=== PATIENT | female | born 1955 | race Two or more races ===

== ENCOUNTER 2024-02-08 09:05 | Emergency (ER) | payer MEDICARE, OTHER ==
[~2024-02-08] VITALS: Ht 157.5 cm; Wt 81.8 kg
[2024-02-08 09:10] VITALS: TEMP 98
[2024-02-08] MEDS: OxyCODONE HCL/ACETAMINOPHEN 5-325 MG TABLET PO ONE (09:47)
[2024-02-08] MEDS: LORazepam 1 MG TABLET PO ONE (09:47)
[2024-02-08 10:32] VITALS: BP 144/82; PULSE 88; RESP 16
== END 2024-02-08 11:29 | disposition home or self-care (01) ==
LOC: EMS 09:05
DX: S43.005A Unspecified dislocation of left shoulder joint, initial encounter (principal); X58.XXXA Exposure to other specified factors, initial encounter; Y93.89 Activity, other specified; Y92.89 Other specified places as the place of occurrence of the external cause; Y99.8 Other external cause status
CPT/HCPCS: 23650; 99284

== ENCOUNTER 2024-05-07 01:33 | Emergency (ER) | payer MEDICARE, OTHER ==
[~2024-05-07] VITALS: Ht 154.9 cm; Wt 58.2 kg
[2024-05-07 01:55] VITALS: TEMP 98
[2024-05-07] MEDS: HYDROCODONE/ACETAMINOPHEN 5-325 MG TABLET PO ONE (02:15)
[2024-05-07] MEDS: BUPIVACAINE HCL/PF 0.5% 10 ML VIAL IARTIC ONE (02:33)
[2024-05-07] MEDS ORDERED: HYDROmorphone HCL 2 MG/ML SYRINGE IM ONE (02:45)
[2024-05-07] MEDS: HYDROmorphone HCL 2 MG/ML SYRINGE IM ONE (02:47)
[2024-05-07] MEDS ORDERED: TRAM50TA5 PO (03:30)
[2024-05-07 03:39] VITALS: BP 130/80; PULSE 85; RESP 18; O2SAT 99
== END 2024-05-07 03:39 | disposition home or self-care (01) ==
LOC: EMS 01:33
DX: S43.015A Anterior dislocation of left humerus, initial encounter (principal); W22.8XXA Striking against or struck by other objects, initial encounter; Y93.89 Activity, other specified; Y92.89 Other specified places as the place of occurrence of the external cause; Y99.8 Other external cause status
CPT/HCPCS: 99284; 23650; 73020; 73030; 96372; J3490; J1171

== ENCOUNTER → 2025-05-19 | Emergency (ER) | payer MEDICARE, OTHER ==
[~2025-05-19] VITALS: Ht 162.6 cm; Wt 70.0 kg
[~2025-05-19] MED LIST: TRAM50TA5 PO
[2025-05-19 08:29] VITALS: TEMP 97.5
[2025-05-19] MEDS: IBUPROFEN 400 MG TABLET PO ONE (08:42)
[2025-05-19] MEDS: ACETAMINOPHEN 500 MG TABLET PO ONE (08:42)
[2025-05-19 09:39] VITALS: BP 143/58; PULSE 79; RESP 18; O2SAT 97
== END | disposition home or self-care (01) ==
LOC: EMS 08:23
DX: S43.015A Anterior dislocation of left humerus, initial encounter (principal); X58.XXXA Exposure to other specified factors, initial encounter; Y93.89 Activity, other specified; Y92.89 Other specified places as the place of occurrence of the external cause; Y99.8 Other external cause status
CPT/HCPCS: 23650; 99284; 73020-TC; 73030-TC; Z7502; Z7610